=== PATIENT | female | born 1990 | race Caucasian/White ===

== ENCOUNTER → 2016-07-18 | Outpatient (CLI) | payer BC | END | disposition home or self-care (01) | LOC: C.PAPS 16:44 | PROVIDERS: ATTEND Obstetrics & Gynecology | DX: Z01.419 Encounter for gynecological examination (general) (routine) without abnormal findings (principal) ==

== ENCOUNTER → 2016-07-18 | Outpatient (CLI) | payer BC | END | disposition home or self-care (01) | LOC: C.LABSPEC 12:46 | PROVIDERS: ATTEND Obstetrics & Gynecology | DX: Z01.411 Encounter for gynecological examination (general) (routine) with abnormal findings (principal); N89.8 Other specified noninflammatory disorders of vagina ==

== ENCOUNTER → 2016-09-12 | Outpatient (CLI) | payer BC ==
--- NOTE | 2016-09-12 16:11 | DIAGNOSTIC IMAGING REPORT ---
RIGHT FOOT 3 VIEWS CLINICAL HISTORY: Right lateral foot pain. FINDINGS: 3 views of the right foot are obtained. No prior studies are available for comparison at the time of dictation. The skeletal structures are well mineralized. No fracture is seen. The joint spaces of the foot are well-maintained. The overlying soft tissues are within normal limits. IMPRESSION: Unremarkable radiographic assessment of the right foot. Electronically signed by: Omar Navarro M.D. 09/12/2016 4:10 PM Dictated Date/Time: 09/12/2016 4:07 PM
== END | disposition home or self-care (01) ==
LOC: C.RADBC 15:42
PROVIDERS: ATTEND Family Medicine
DX: M25.571 Pain in right ankle and joints of right foot (principal)

== ENCOUNTER → 2017-04-30 | Outpatient (CLI) | payer BC ==
--- NOTE | 2017-04-30 09:41 | DIAGNOSTIC IMAGING REPORT ---
R WRIST MIN 3 VIEWS ROUTINE CLINICAL HISTORY: PAIN IN RIGHT WRIST pain COMPARISON: None. DISCUSSION: The bones and joint spaces appear intact. There is no evidence of fracture, dislocation or bony disease. There is no evidence for soft tissue swelling. IMPRESSION: Negative study. The above report was generated using voice recognition software. It may contain grammatical, syntax or spelling errors. Electronically signed by: George Agee M.D. 04/30/2017 9:40 AM Dictated Date/Time: 04/30/2017 9:38 AM
== END | disposition home or self-care (01) ==
LOC: C.RADBC 09:21
PROVIDERS: ATTEND Family Medicine
DX: M25.531 Pain in right wrist (principal)

== ENCOUNTER → 2017-08-27 | Outpatient (CLI) | payer BC | END | disposition home or self-care (01) | LOC: C.LABSPEC 16:11 | PROVIDERS: ATTEND Obstetrics & Gynecology | DX: Z34.81 Encounter for supervision of other normal pregnancy, first trimester (principal) ==

== ENCOUNTER → 2017-09-25 | Outpatient (CLI) | payer BC ==
[2017-09-25 14:38] LABS: BASO % 0.1 %; BASO ABS # 0.01 K/uL (0-0.2); EOS % 2.1 %; EOS ABS # 0.18 K/uL (0-0.5); HEMATOCRIT 39.5 % (37-47); HEMOGLOBIN 13.6 g/dL (12.0-16.0); IG# 0.03 K/uL (0.00-0.02); LYMPH % 17.3 %; LYMPH ABS # 1.51 K/uL (1.2-3.4); MEAN CELL VOLUME 86.8 fL (80-100); MEAN CORPUSCULAR HEMOGLOBIN 29.9 pg (25-34); MEAN CORPUSCULAR HGB CONC 34.4 g/dl (32-36); MEAN PLATELET VOLUME 9.6 fL (7.4-10.4); MONO % 6.7 %; MONO ABS # 0.58 K/uL (0.11-0.59); NEUT % 73.5 %; NEUT ABS # 6.41 K/uL (1.4-6.5); PLATELET COUNT 266 K/uL (130-400); RED CELL DISTRIBUTION WIDTH CV 12.5 % (11.5-14.5); RED CELL DISTRIBUTION WIDTH SD 39.7 fL (36.4-46.3); WHITE BLOOD COUNT 8.72 K/uL (4.8-10.8)
== END | disposition home or self-care (01) ==
LOC: C.LAB1850 13:22
PROVIDERS: ATTEND Obstetrics & Gynecology
DX: Z34.81 Encounter for supervision of other normal pregnancy, first trimester (principal)

== ENCOUNTER → 2017-10-07 | Outpatient (CLI) | payer BC | END | disposition home or self-care (01) | LOC: C.LAB1850 11:22 | PROVIDERS: ATTEND Obstetrics & Gynecology | DX: Z34.82 Encounter for supervision of other normal pregnancy, second trimester (principal) ==

== ENCOUNTER 2019-07-22 20:50 | Observation (INO) ==
--- OUTSIDE RECORDS SUMMARY | 2019-07-22 20:53 | External Medical Summary | Continuity of Care Document ---
:1990 Author Name Malathi Deshpande, Provider Address Unavailable Unavailable , Care Team Providers Name Role Phone Unavailable Unavailable Unavailable ASHLYN DAVISON Unavailable Unavailable Unavailable Unavailable Unavailable Problems Supervision of normal intrauterine pregn catalino in multigravida in third trimester (V22.1) (Z34.83) Cervical polyp (622.7) (N84.1) Allergies and Adverse Reactions Penicillins (Allergy) Status: Denied Sulfa Drugs (Allergy) Medications Pre- Charlee ROMERO Refills: 0 Procedures History of Oral Surgery Tooth Extraction Status: Completed Immunizations Influenza On: 06-Mar-2017 Tdap (Adacel) On: 08-Jan-2018 8:43 Lot #: [id number], [employer] PA[employer]UR Family History Father Family history of hypertension (V17.49) (Z82.49) Status: Act layo FHx: hypercholesterolemia (V18.19) (Z83.42) Status: Active Family history of cardiac disorder (V17.49) (Z82.49) Status: Active Grandmother Family history of cardiac disorder (V17.49) (Z82.49) Status: Active Grandmother Family history of cardiac disorder (V17.49) (Z82.49) Status: Active Grandfather Family history of cardiac disorder (V17.49) (Z82.49) Status: Active Grandfather Family history of cardiac disorder (V17.49) (Z82.49) Status: Active Mother Family history of endometriosis (V19.8) (Z84.2) Status: Acti ve Family history of ovarian cyst (V18.7) (Z84.2) Status: Activ e Social History - Smoking Status Never smoker Plan of Treatment Planned Observations Planned Goals not documented Results No Known Results Results not documented Encounters Appointment; Nahomi Jj M.D. 14-May-2018 10:00 Encounter Diagnosis: Problem not documented Appointment; Adelita Moore DO 26-Mar-2018 10:20 Encounter Diagnosis: Problem not documented Appointment; Yajaira Gtz M.D. 19-Mar-2018 13:00 Encounter Diagnosis: Problem not documented Appointment; Beatriz Gautam M.D. 12-Mar-2018 16:10 Encounter Diagnosis: Problem not documented Appointment; Berhane Roger M.D. 04-Mar-2018 16:00 Encounter Diagnosis: Problem not documented Appointment; Yajaira Gtz M.D. 19-Feb-2018 11:40 Encounter Diagnosis: Problem not documented Appointment; Yajaira Gtz M.D. 06-Feb-2018 9:10 Encounter Diagnosis: Problem not documented Appointment; Dez Levy M.D. 22-Jan-2018 8:50 Encounter Diagnosis: Problem not documented Appointment; Yaajira Gtz M.D. 08-Jan-2018 8:20 Encounter Diagnosis: Problem not documented Appointment; Adelita Moore DO 09-Dec-2017 8:30 Encounter Diagnosis: Problem not documented Appointment; Beatriz Gautam M.D. 11-Nov-2017 11:10 Encounter Diagnosis: Problem not documented Appointment; OBGYN SC2, Ultrasound 11-Nov-2017 10:05 Encounter Diagnosis: Problem not documented Appointment; Dez Levy M.D. 07-Oct-2017 10:40 Encounter Diagnosis: Problem not documented Appointment; OBGYN SC2, Ultrasound 30-Sep-2017 10:15 Encounter Diagnosis: Problem not documented Appointment; Nahomi Jj M.D. 25-Sep-2017 13:00 Encounter Diagnosis: Problem not documented Appointment; OB SC1, Procedure Rm 25-Sep-2017 13:00 Encounter Diagnosis: Problem not documented Appointment; OB SC1, Nursing Station 27-Aug-2017 13:00 Encounter Diagnosis: Problem not documented
--- OUTSIDE RECORDS SUMMARY | 2019-07-22 20:53 | External Medical Summary | Continuity of Care Document ---
:1990 Author Name Malathi Deshpande, Provider Address Unavailable Unavailable , Care Team Providers Name Role Phone Unavailable Unavailable Unavailable ASHLYN DAVISON Unavailable Unavailable Unavailable Unavailable Unavailable Problems Cervical polyp (622.7) (N84.1) Supervision of normal intrauterine pregn catalino in multigravida in third trimester (V22.1) (Z34.83) Allergies and Adverse Reactions Penicillins (Allergy) Status: Denied Sulfa Drugs (Allergy) Medications Pre- Charlee ROMERO Refills: 0 Procedures History of Oral Surgery Tooth Extraction Status: Completed Immunizations Influenza On: 06-Mar-2017 Tdap (Adacel) On: 08-Jan-2018 8:43 Lot #: [id number], [employer]FI PA[employer]UR Family History Father Family history [...] 8:50 Encounter Diagnosis: Problem not documented Appointment; Yajaira Gtz M.D. 08-Jan-2018 8:20 Encounter Diagnosis: Problem [...]
[2019-07-22] MEDS ORDERED: SODIUM CHLORIDE 0.9% 1000ML 1,000 ML IV ONE (21:20)
[2019-07-22] MEDS ORDERED: MoRPHine SULFATE 4 MG/ML 1 ML CARP\\VIAL IV STA (21:20)
[2019-07-22] MEDS ORDERED: ONDANSETRON INJ 2 MG/ML 2 ML VIAL IV STA (21:20)
[2019-07-22 22:08] LABS: Alanine Aminotransferase 23 U/L (12-78); Albumin Level 4.2 gm/dl (3.4-5.0); Aspartate Aminotransferase 18 U/L (15-37); BUN Creatinine Ratio 10.2 (10-20); Blood Urea Nitrogen 11 mg/dl (7-18); Calcium 9.3 mg/dl (8.5-10.1); Carbon Dioxide 27 mmol/L (21-32); Chloride 105 mmol/L (98-107); Est GFR (African American) 82.9; Est GFR (Non-African American) 71.5; Glucose 134 mg/dl (70-99); Lipase 147 U/L (73-393); Potassium 3.5 mmol/L (3.5-5.1); Sodium 138 mmol/L (136-145)
[2019-07-22 22:11] LABS: Albumin Globulin Ratio 1.1 (0.9-2); Alkaline Phosphatase 69 U/L (45-117); Bilirubin,Total 0.7 mg/dl (0.2-1); Globulin 3.8 gm/dl (2.5-4.0)
[2019-07-22 22:25] LABS: Pregnancy Test, Serum Negative (Negative)
[2019-07-22 22:28] LABS: Hematocrit (blood only) 45.3 % (37-47); Hemoglobin 15.6 g/dL (12.0-16.0); Mean Corpuscular Hemoglobin 29.8 pg (25-34); Mean Corpuscular Hgb Conc 34.4 g/dL (32-36); Mean Corpuscular Volume 86.6 fL (80-100); Mean Platelet Volume 9.7 fL (7.4-10.4); Platelet Count 316 K/uL (130-400); RDW Coefficient of Variation 12.4 % (11.5-14.5); RDW Standard Deviation 39.7 fL (36.4-46.3); Red Blood Count 5.23 M/uL (4.2-5.4); White Blood Count 22.08 K/uL (4.8-10.8)
[2019-07-22 22:30] LABS: ALC (manual) 0.77 K/uL (1.2-3.4); ANC (manual) 19.56 K/uL (1.4-6.5); Basophils % (manual) 0.9 %; Lymphocytes # (manual) 0.77 K/uL (1.2-3.4); Lymphocytes % (manual) 3.5 %; Monocytes # (manual) 1.55 K/uL (0.11-0.59); Neutrophils # (manual) 19.56 K/uL (1.4-6.5); Neutrophils % (manual) 88.6 %; Platelet Estimate Normal (Normal)
[2019-07-22] MEDS ORDERED: IOVERSOL 100ml IV PRN (22:30)
--- NOTE | 2019-07-22 22:51 | CT Scan Report ---
ABDOMEN AND PELVIS CT WITH IV CONTRAST CT DOSE: 283.12 mGy.cm HISTORY: Acute right lower quadrant abdominal pain RLQ pain TECHNIQUE: Multiaxial CT images of the abdomen and pelvis were performed following the IV administrat ion of 93 cc of Optiray 320, A dose lowering technique was utilized adhering to the principles of [place]. COMPARISON STUDY: None. FINDINGS: Lung bases are clear. No pneumatosis or pneumoperitoneum. The imaged inferior cardiac chambers are un remarkable. Splenomegaly, 13.67 m in length. Mild gallbladder distention. Pancreas and adrenal glands are unremarkable. There are a few hypodensities within the hepatic dome measuring up to 10 mm sugges tive of probable cysts. Liver is otherwise unremarkable. Patency of the hepatic and portal veins. Kid neys are unremarkable without hydronephrosis. Probable cyst of the inferior pole left kidney, 8 mm. M ild urinary bladder wall thickening. IUD of the central pelvis. Mild free pelvic fluid. No adnexal ma ss lesions. Aorta and IVC are within normal limits. No adenopathy. No bowel obstruction. Moderate fecal retention of the right hemicolon. Mildly distended fluid-filled terminal ileum measuring 3.0 cm is suggestive of sentinel loop ileus. The adjacent appendix is subopt imally visualized without the use of enteric contrast however is dilated and fluid-filled measuring u p to 9 mm with mild wall thickening and periappendiceal inflammatory stranding. No drainable fluid co llection. Soft tissues are unremarkable. Bones appear intact. IMPRESSION: 1. Limited exam without the use of enteric contrast. 2. Appendix is fluid-filled and dilated at 9 mm. Mild periappendiceal inflammatory stranding is also noted with findings suggestive of acute appendicitis in the appropriate clinical setting. No evidence of perforation or drainable fluid collection. 3. Fluid-filled mildly dilated distal ileum suggests sentinel loop ileus. No bowel obstruction. 4. Mild free pelvic fluid. 5. Additional findings as above. ACT 112: Negative or not required by law. The above report was generated using voice recognition software. It may contain grammatical, syntax o r spelling errors. Electronically signed by: Tanner Lassiter M.D. 07/22/2019 10:50 PM
[2019-07-22] MEDS ORDERED: cefOXitin 2,000 MG/60 ML BAG IV STA (22:53)
[2019-07-22] MEDS ORDERED: SODIUM CHLORIDE 0.9% 500 ML IV SCH (23:00)
--- NOTE | 2019-07-23 00:07 | Emergency Department Note ---
Entered by Cornelia Zabala acting as a scribe for Karri Elise MD History of Present Illness General Chief complaint: Vomiting Stated complaint: VOMITING,SEVERE PAIN Time Seen by Provider: 07/22/19 21:09 Source: patient History of Present Illness Onset (ago): hour(s) (5) Location: abdomen Pain Consistency: + constant Maximum Pain Intensity: 10 Quality: + sharp Associated symptoms: + denies other symptoms (blood in vomit, blood in urine, recent trauma) and + nausea/vomiting The patient is a 29 year old female who presents to the Emergency Room with complaints of constant sharp abdominal pain beginning 5 hours ago. The patient reports vomiting 3 - 4 times. She denies any blood in her vomit. The patient reports taking 2 ibuprofen for the pain but notes they did not help. The patient denies blood in her urine, recent trauma, and alcohol and tobacco use. She states her last bowel movement was 5 hours ago and was normal. She states she had a cold and the stomach bug about 2 weeks ago. The patient reports a history of ovarian cysts, but denies a history of kidney stones. She states she had an IUD placed 4-5 weeks ago and been having some minor bleeding ever since. Home Medications Home Medications Medication Instructions Recorded Confirmed Type levonorgestrel [Mirena] 0 mcg INTRAUTERINE DIRECTED 07/22/19 07/22/19 History Allergies Allergy/AdvReac Type Severity Reaction Status Date / Time Sulfa (Sulfonamide Allergy Unknown Hives Verified 07/22/19 22:19 Antibiotics) Past Med/Surg History Medical History Endometriosis Heart murmur Ovarian cyst Vaginal delivery 01/16/14 Vaginal hematoma Vaginal hematoma following 2014 delivery Surgical History H/O wisdom tooth extraction Family History Father Heart disease Hypertension Dyslipidemia Grandmother (Maternal) Heart disease Grandmother (Paternal) Heart disease Grandfather (Maternal) Heart disease Grandfather (Paternal) Heart disease Mother Endometriosis Social History Preferred Language: Luxembourgish Quill Fixer Required: No Beliefs That Will Affect Care: None marital status: Current Living Situation: Spouse and Family Feels Safe at Home: Yes Smoking Status: Never smoker Second Hand Exposure: No ; Hx Alcohol Use: No Hx Substance Use: No Review of Systems See HPI for pertinent positives & negatives. and A total of 10 systems reviewed and were otherwise negative Physical Exam Vital Signs Vital Signs - 24 hr 07/22/19 20:52 07/22/19 21:53 07/22/19 23:32 Temperature 37.0 C Temperature Source Oral Pulse Rate 69 Pulse Rate [Apical] 59 L 80 Pulse Rhythm Regular Pulse Rhythm [Apical] Regular Pulse Strength Normal Pulse Strength [Apical] Normal Respiratory Rate 17 18 16 Respiratory Effort / Characteristics Non-Labored Spontaneous Non-Labored Spontaneous Respiratory Depth Normal Normal Respiratory Pattern Regular Blood Pressure 129/88 Blood Pressure [Right Arm] 133/78 124/65 Blood Pressure Mean 101 Blood Pressure Mean [Right Arm] 96 84 Blood Pressure Position Sitting Blood Pressure Position [Right Arm] Sitting Pulse Oximetry 97 98 98 Oxygen Delivery Method Room Air Room Air Room Air Sepsis Recent Fever Within 48 Hours No Sepsis Action Taken by Nursing No Action Required GENERAL: Tearful, in pain, well nourished, non-toxic. EYE EXAM: Normal conjunctiva. PERRL, no anisocoria and EOM's grossly intact w/o pain. OROPHARYNX: Moist mucous membranes. Grossly normal dentition. NECK: Supple, no nuchal rigidity, no adenopathy, non-tender. No signs of meningismus. LUNGS: Clear to auscultation. Normal chest wall mechanics. HEART: NSR, no MRG. ABDOMEN: Abdomen soft, normo-active bowel sounds, no masses, no rebound or guarding. Right lower quadrant TTP. Negative Obturator's and Psoas. BACK: No CVA TTP. SKIN: No rashes and no bruising. UPPER EXTREMITIES: Upper extremities are grossly normal. LOWER EXTREMITIES: No pitting edema. No calf pain. NEURO EXAM: A&O x3, cranial nerves II-XII grossly intact, normal speech, moves all 4 extremities on command w/o issue. Course Course 2124: Past medical records reviewed. The patient was evaluated in room A11B. A complete history and physical exam was performed. 2254: Upon reevaluation, the patient is feeling better. I discussed findings and results with the patient. She verbalized agreement of the treatment plan. 2299: Discussed the patient's case with Dr. Blackwell - General Surgery. The patient will be evaluated for further management. Administered Medications Ioversol (Optiray 320 100ml) 93 ml IV ONCE PRN PRN Reason: Interaction Checking Stop: 07/26/19 22:29 Last Admin: 07/22/19 22:30 Dose: 93 ml Documented by: [id number] Discontinued Medications Sodium Chloride (Nss 1000ml) 1,000 mls @ 999 mls/hr IV .Q1H1M ONE Stop: 07/22/19 22:20 Last Admin: 07/22/19 21:46 Dose: 999 mls/hr Documented by: [id number] Cefoxitin Sodium (Mefoxin) 2,000 mg in 60 mls @ 100 mls/hr IV NOW STA Stop: 07/22/19 23:28 Last Admin: 07/22/19 23:32 Dose: 100 mls/hr Documented by: [id number] Morphine Sulfate (Morphine Sulfate) 4 mg IV NOW STA Stop: 07/22/19 21:21 Last Admin: 07/22/19 21:46 Dose: 4 mg Documented by: [id number] Ondansetron HCl (Zofran) 4 mg IV NOW STA Stop: 07/22/19 21:21 Last Admin: 07/22/19 21:46 Dose: 4 mg Documented by: [id number] Medical Decision Making Differential Diagnosis Differential diagnoses includes but is not limited to gastritis, peptic ulcer disease, GERD, gallbladder disease, pancreatitis, small bowel obstruction, acute coronary syndrome, pericarditis, ischemic bowel, irritable bowel disease, irritable bowel syndrome, appendicitis, diverticulitis, malignancy, hernia, urinary tract infection, torsion, /ectopic , perforation, trauma, infectious. Medical Records Attestation: I reviewed the patient's medical records. Home Medications Current Medication List: was personally reviewed by me Laboratory Data Attestation: I reviewed the patient's lab results. Result diagrams: 07/22/19 21:35 07/22/19 21:35 Lab Results 07/22/19 07/22/19 07/22/19 Range/Units 21:35 21:35 21:35 WBC 22.08 H (4.8-10.8) K/uL RBC 5.23 (4.2-5.4) M/uL Hgb 15.6 (12.0-16.0) g/dL Hct 45.3 (37-47) % MCV 86.6 (80-100) fL MCH 29.8 (25-34) pg MCHC 34.4 (32-36) g/dL RDW Std Deviation 39.7 (36.4-46.3) fL RDW Coeff of Gladis 12.4 (11.5-14.5) % Plt Count 316 (130-400) K/uL MPV 9.7 (7.4-10.4) fL Neutrophils % (Manual) 88.6 % Lymphocytes % (Manual) 3.5 % Monocytes % (Manual) 7.0 % Basophils % (Manual) 0.9 % Neutrophils # (Manual) 19.56 H (1.4-6.5) K/uL Total Absolute Neuts 19.56 H (1.4-6.5) K/uL Lymphocytes # (Manual) 0.77 L (1.2-3.4) K/uL Total Abs Lymphocytes 0.77 L (1.2-3.4) K/uL Monocytes # (Manual) 1.55 H (0.11-0.59) K/uL Basophils # (Manual) 0.20 (0-0.2) K/uL Platelet Estimate Normal (Normal) Sodium 138 (136-145) mmol/L Potassium 3.5 (3.5-5.1) mmol/L Chloride 105 (98-107) mmol/L Carbon Dioxide 27 (21-32) mmol/L Anion Gap 6.0 (3-11) BUN 11 (7-18) mg/dl Creatinine 1.04 (0.6-1.2) mg/dl Est Cr Clr Drug Dosing Not Reportable Est GFR ( Amer) 82.9 Est GFR (Non-Af Amer) 71.5 BUN/Creatinine Ratio 10.2 (10-20) Glucose 134 H (70-99) mg/dl Calcium 9.3 (8.5-10.1) mg/dl Total Bilirubin 0.7 (0.2-1) mg/dl AST 18 (15-37) U/L ALT 23 (12-78) U/L Alkaline Phosphatase 69 (45-117) U/L Total Protein 8.0 (6.4-8.2) gm/dl Albumin 4.2 (3.4-5.0) gm/dl Globulin 3.8 (2.5-4.0) gm/dl Albumin/Globulin Ratio 1.1 (0.9-2) Lipase 147 (73-393) U/L HCG, Qual Negative (Negative) Imaging Data Radiologist's Impression: Radiology results as stated below per my review and the radiologist's interpretation: ABDOMEN AND PELVIS CT WITH IV CONTRAST CT DOSE: 283.12 mGy.cm HISTORY: Acute right lower quadrant abdominal pain RLQ pain TECHNIQUE: Multiaxial CT images of the abdomen and pelvis were performed following the IV administration of 93 cc of Optiray 320, A dose lowering technique was utilized adhering to the principles of ALARA. COMPARISON STUDY: None. FINDINGS: Lung bases are clear. No pneumatosis or pneumoperitoneum. The imaged inferior cardiac chambers are unremarkable. Splenomegaly, 13.67 m in length. Mild gallbladder distention. Pancreas and adrenal glands are unremarkable. There are a few hypodensities within the hepatic dome measuring up to 10 mm suggestive of probable cysts. Liver is otherwise unremarkable. Patency of the hepatic and portal veins. Kidneys are unremarkable without hydronephrosis. Probable cyst of the inferior pole left kidney, 8 mm. Mild urinary bladder wall thickening. IUD of the central pelvis. Mild free pelvic fluid. No adnexal mass lesions. Aorta and IVC are within normal limits. No adenopathy. No bowel obstruction. Moderate fecal retention of the right hemicolon. Mildly distended fluid-filled terminal ileum measuring 3.0 cm is suggestive of sentinel loop ileus. The adjacent appendix is suboptimally visualized without the use of enteric contrast however is dilated and fluid-filled measuring up to 9 mm with mild wall thickening and periappendiceal inflammatory stranding. No drainable fluid collection. Soft tissues are unremarkable. Bones appear intact. IMPRESSION: 1. Limited exam without the use of enteric contrast. 2. Appendix is fluid-filled and dilated at 9 mm. Mild periappendiceal inflammatory stranding is also noted with findings suggestive of acute appendicitis in the appropriate clinical setting. No evidence of perforation or drainable fluid collection. 3. Fluid-filled mildly dilated distal ileum suggests sentinel loop ileus. No bowel obstruction. 4. Mild free pelvic fluid. 5. Additional findings as above. ACT 112: Negative or not required by law. The above report was generated using voice recognition software. It may contain grammatical, syntax or spelling errors. Electronically signed by: Tanner Lassiter M.D. 07/22/2019 10:50 PM Blood Pressure Blood Pressure Findings: Elevated blood pressure Blood Pressure Disposition: further management by hospitalist MDM Narrative The patient is a 29 year old female who presents to the Emergency Room with complaints of constant sharp abdominal pain beginning 5 hours ago. Patient was seen and evaluated at the bedside. The patient did present with right lower quadrant pain. The patient does have right lower quadrant pain on exam. Is tearful. Patient did have blood work completed along with urinalysis and CT of the abdomen pelvis. Patient was given antiemetics and pain me dications. Patient did have a white count of 22. Patient does have a CT concerning for fluid-filled appendix. There is an ileus but no bowel obstruction. The patient is much improved upon reassessment. I did speak the on-call general surgeon who agreed to admit the patient. Patient was ordered cefoxitin. Patient was made n.p.o. started on maintenance fluids and the patient was admitted to general surgery. Pending OR in the morning for general surgery. Impression & Plan Acute appendicitis, Abdominal pain, Ileus Discharge Plan Visit Data Chief Complaint: Vomiting Stated Complaint: VOMITING,SEVERE PAIN ED Provider: Karri Elise Discharge Problem: Acute appendicitis, Abdominal pain, Ileus Patient Disposition: Being Evaluated by Hospitalist Discharge Instructions Interventions: ED Discharge Assessment Last Done: 07/22/19 23:53 Discharge Problem: Acute appendicitis Qualifiers: Acute appendicitis type: unspecified acute appendicitis type Qualified Code(s): K35.80 - Unspecified acute appendicitis Abdominal pain Qualifiers: Abdominal location: right lower quadrant Qualified Code(s): R10.31 - Right lower quadrant pain The scribe's documentation has been prepared under my direction and personally reviewed by me in its entirety. I confirm that the note above accurately reflects all work, treatment, procedures, and medical decision making performed by me.
[2019-07-23] MEDS ORDERED: ONDANSETRON INJ 2 MG/ML 2 ML VIAL IV PRN ×2 (00:17→08:12)
[2019-07-23] MEDS: SODIUM CHLORIDE 0.9% 1000ML 1,000 ML IV SCH ×2 (00:31→07:07)
[2019-07-23] MEDS: MoRPHine SULFATE 2 MG/ML CARP IV PRN ×2 (00:56→05:55)
[2019-07-23] MEDS ORDERED: BUPIVACAINE/EPINEPHRINE 0.5% MPF 1:200,000 10 ML VIAL ONE (07:05)
[2019-07-23] MEDS ORDERED: MIDAZOLAM HCL 1 MG/ML 2ML VIAL ONE (07:23)
[2019-07-23] MEDS ORDERED: fentaNYL citrate 100 MCG/2 ML VIAL ONE ×2 (07:23→08:41)
--- NOTE | 2019-07-23 07:27 | History & Physical Report ---
Date of Service July 23, 2019 Assessment & Plan (1) Acute appendicitis: This is a 29yF who is 15mos post , without any other significant medical history who presents to the [facility] with abdominal pain and vomiting. Workup in the ED showed a WBC of [address] scan concerning for acute ap pendicitis. Patient is primarily tender in the right lower quadrant. She has been NPO, last ate at 2pm yesterday. We will plan to proceed with laparoscopic appendectomy today and patient in agreement. Keep NPO with IVF and IV abx. Dr. Blackwell will be by to obtain surgical consent. as above. pt also has an umbilical hernia that bothers her. will repair at the end of the case. discussed options/risks ( bleeding/infection/dvt/pe/mi/cva/injury to another organ such as bowel/bladder /ureter etc...). questions answered. pt agreeable. History of Present Illness Primary Care Provider: Adriano Faheem Cruz This is a 29y F who is 15mos post vaginal delivery without any other significant medical history who presents to the [facility] ED on 07/22/19 with complaints of abdominal pain and vomiting. Patient states her abdominal pain started around 4pm yesterday. It started out as a dull ache then progressed to become more severe. She ultimately ended up vomiting 3-4 times and decided to come in to the ED for evaluation. She reports her pain is primarily in the right lower abdominal region. In the ED patient is afebrile, WBC elevated at 22, and a CT a/p performed revealed findings concerning for acute appendicitis. Patient denies fevers/chills, diarrhea/constipation, and has not had previous abdominal surgery. Surgery was consulted to evaluate patient. Allergies Allergy/AdvReac Type Severity Reaction Status Date / Time Sulfa (Sulfonamide Allergy Unknown Hives Verified 07/22/19 22:19 Antibiotics) Home Medications Home Medications Medication Instructions Recorded Confirmed Type levonorgestrel [Mirena] 0 mcg INTRAUTERINE DIRECTED 07/22/19 07/22/19 History Past Med/Surg History Medical History Endometriosis Heart murmur Ovarian cyst Vaginal delivery 01/16/14 Vaginal hematoma Vaginal hematoma following 2014 delivery Surgical History H/O wisdom tooth extraction Family History Father Heart disease Hypertension Dyslipidemia Grandmother (Maternal) Heart disease Grandmother (Paternal) Heart disease Grandfather (Maternal) Heart disease Grandfather (Paternal) Heart disease Mother Endometriosis Social History Preferred Language: Thai Communication Ability: Effective Reconditioner Required: No Beliefs That Will Affect Care: None marital status: Current Living Situation: Family Feels Safe at Home: Yes Safety Concerns: Feels Safe At This Time Smoking Status: Never smoker Second Hand Exposure: No ; Hx Alcohol Use: Yes Hx Substance Use: No Review of Systems Constitutional: no fever and no chills feels dehydrated Cardiovascular: no chest pain Gastrointestinal: + abdominal pain (right lower abdomen), + nausea and + vomiting; no bloating and no change in bowel habits Physical Exam Physical Exam: awake/alert Constitutional: well developed and well nourished; no acute distress Respiratory: normal respiratory effort Gastrointestinal (Abdomen): Inspection/Auscultation: abdomen not distended and no abdominal surgical scar Percussion/Palpation: + abdomen tender (primarily in RLQ), + guarding and abdomen soft Results & Data Vital Signs (Past 12 Hours) Vital Signs Temp Pulse Pulse Pulse Resp BP BP 07/23/19 00:00 36.5 C 66 16 110/72 07/22/19 23:32 80 16 07/22/19 21:53 59 L 18 07/22/19 20:52 37.0 C 69 17 129/88 BP Pulse Ox 07/23/19 00:00 97 07/22/19 23:32 124/65 98 07/22/19 21:53 133/78 98 07/22/19 20:52 [phone] Scan Report Patient: BARTOLO TRAORE AAdmit Date: 07/22/19 MR#: [id number]: [address] [facility] Acct ID:[id number]: Date: 1990[facility] Zip: [place] [id number] Age: 29Location: ED Sex: F Room/Bed: Att Phy:Diagnosis: VOMITING,SEVERE PAIN Alla Phy: Nancy Adriano MayenDisha, DOService Date: 07/22/19 [facility] Phy:Interpreting Phy: Berhane Lassiter Admit Phy: Ordering Phy: Karri Elise M.D. cc: ~ ABDOMEN AND PELVIS CT WITH IV CONTRAST CT DOSE: 283.12 mGy.cm HISTORY: Acute right lower quadrant abdominal pain RLQ pain TECHNIQUE: Multiaxial CT images of the abdomen and pelvis were performed following the IV administration of 93 cc of Optiray 320, A dose lowering technique was utilized adhering to the principles of ALARA. COMPARISON STUDY: None. FINDINGS: Lung bases are clear. No pneumatosis or pneumoperitoneum. The imaged inferior cardiac chambers are unremarkable. Splenomegaly, 13.67 m in length. Mild gallbladder distention. Pancreas and adrenal glands are unremarkable. There are a few hypodensities within the hepatic dome measuring up to 10 mm suggestive of probable cysts. Liver is otherwise unremarkable. Patency of the hepatic and portal veins. Kidneys are unremarkable without hydronephrosis. Probable cyst of the inferior pole left kidney, 8 mm. Mild urinary bladder wall thickening. IUD of the central pelvis. Mild free pelvic fluid. No adnexal mass lesions. Aorta and IVC are within normal limits. No adenopathy. No bowel obstruction. Moderate fecal retention of the right hemicolon. Mildly distended fluid-filled terminal ileum measuring 3.0 cm is suggestive of sentinel loop ileus. The adjacent appendix is suboptimally visualized without the use of enteric contrast however is dilated and fluid-filled measuring up to 9 mm with mild wall thickening and periappendiceal inflammatory stranding. No drainable fluid collection. Soft tissues are unremarkable. Bones appear intact. IMPRESSION: 1. Limited exam without the use of enteric contrast. 2. Appendix is fluid-filled and dilated at 9 mm. Mild periappendiceal inflammatory stranding is also noted with findings suggestive of acute appendicitis in the appropriate clinical setting. No evidence of perforation or drainable fluid collection. 3. Fluid-filled mildly dilated distal ileum suggests sentinel loop ileus. No bowel obstruction. 4. Mild free pelvic fluid. 5. Additional findings as above. ACT 112: Negative or not required by law. The above report was generated using voice recognition software. It may contain grammatical, syntax or spelling errors. Electronically signed by: Tanner Lassiter M.D. 07/22/2019 10:50 PM PG Care Time/CCT Total # of Minutes Spent Total Time Spent with Patient: Total time spent is greater than 50% in coordination of care (as documented) at patient's floor/unit and/or counseling patient: (1) Acute appendicitis Acute appendicitis type: unspecified acute appendicitis type Qualified Code(s): K35.80 - Unspecified acute appendicitis
[2019-07-23] MEDS ORDERED: ONDANSETRON INJ 2 MG/ML 2 ML VIAL ONE (07:31)
[2019-07-23] MEDS ORDERED: DEXAMETHASONE SOD INJ 4 MG/ML VIAL ONE (07:31)
[2019-07-23] MEDS ORDERED: LIDOCAINE HCL 2% 2 ML VIAL/AMP(20MG/ML) INFIL ONE (07:31)
[2019-07-23] MEDS ORDERED: ROCURONIUM BROMID 50MG/5ML SYR ONE ×5 (07:31)
[2019-07-23] MEDS ORDERED: PROPOFOL IV EMULSION 10 MG/ML 20 ML VIAL IV ONE (07:31)
[2019-07-23] MEDS ORDERED: ACETAMINOPHEN 1000 MG/100 ML IV IV ONE (07:33)
--- NOTE | 2019-07-23 07:57 | Anesthesiology Consultation ---
Date of Service July 23, 2019 Assessment & Plan (1) Encounter for pre-operative examination: Chart Review Chart Review: Acceptable Risk for Surgery History Surgery Operation Date: 07/23/19 07:05 Proposed Procedures p Laparoscopic Appendectomy - Doron Blackwell, Height/Weight Height: 5 ft 8 in Weight: 65.8 kg Allergies Allergy/AdvReac Type Severity Reaction Status Date / Time Sulfa (Sulfonamide Allergy Unknown Hives Verified 07/22/19 22:19 Antibiotics) Medications Home Medications Medication Instructions Recorded Confirmed Last Taken levonorgestrel [Mirena] 0 mcg INTRAUTERINE DIRECTED 07/22/19 07/22/19 Unknown Active Medications Generic Name Dose Route Start Last Admin Trade Name Freq PRN Reason Stop Dose Admin Sodium Chloride 1,000 mls @ 150 mls/hr 07/22/19 23:30 07/23/19 07:07 Nss 1000ml IV 07/23/19 23:29 150 mls/hr .Q6H40M OSCAR Administration Morphine Sulfate 2 mg 07/23/19 00:17 07/23/19 05:55 Morphine Sulfate IV 08/06/19 00:16 2 mg Q1H PRN Administration Pain NPO Date Last Intake of Fluids: 07/22/19 Time Last Intake of Fluids: 20:00 Date Last Intake of Solids: 07/22/19 Time Last Intake of Solids: 14:00 Past Medical History Medical History Endometriosis Heart murmur Ovarian cyst Vaginal delivery 01/16/14 Vaginal hematoma Vaginal hematoma following 2014 delivery Exercise / Class Metabolic Activity II 4-5 Yardwork/Stairs/Walk up hill Past Family History Family History Father Heart disease Hypertension Dyslipidemia Grandmother (Maternal) Heart disease Grandmother (Paternal) Heart disease Grandfather (Maternal) Heart disease Grandfather (Paternal) Heart disease Mother Endometriosis Past Surgical History Surgical History H/O wisdom tooth extraction Past Anesthesia History No Hx of Anesthesia Complications History of PONV No Hx of PONV and No Hx of Motion Sickness Social History Smoking Status: Never smoker Hx Alcohol Use: Yes alcohol intake frequency: a few times a week Hx Substance Use: No substance use type: does not use Physical Exam Vital Signs Last Vital Signs Temp 37.2 C 07/23/19 07:30 Pulse 74 07/23/19 07:30 Resp 20 07/23/19 07:30 BP 111/68 07/23/19 07:30 Pulse Ox 95 07/23/19 07:30 Testing Laboratory Results 07/22/19 21:35 07/22/19 21:35
[2019-07-23] MEDS ORDERED: cefOXitin 2,000 MG in DEXTROSE 5% 50 ML IV STA (08:03)
[2019-07-23] MEDS ORDERED: ATROPINE SULFATE 0.1 MG/ML 10ML SYR IV PRN (08:12)
[2019-07-23] MEDS ORDERED: fentaNYL citrate 100 MCG/2 ML VIAL IV PRN (08:12)
[2019-07-23] MEDS ORDERED: KETOROLAC 30 MG/ML VIAL IV PRN (08:12)
[2019-07-23] MEDS ORDERED: NEOSTIGMINE METHYLSULFATE 5 MG/5 ML SYR ONE (08:55)
[2019-07-23] MEDS ORDERED: GLYCOPYRROLATE 0.2 MG/ML VIAL ONE ×2 (08:55→08:59)
[2019-07-23] MEDS ORDERED: KETOROLAC 30 MG/ML VIAL ONE (08:59)
--- NOTE | 2019-07-23 09:32 | Operative Report ---
PG Post Operative Report Pre & Post Diagnosis Operation Date: 07/23/19 07:05 Pre-Op Diagnosis: Acute Appendicitis and umbilical hernia Post-Op Diagnosis: Acute Appendicitis and umbilical hernia I identified the patient and participated in the time-out.: Yes Procedure Operation Date: 07/23/19 07:05 Actual Procedures p Laparoscopic Appendectomy(Not Applicable) - Doron Blackwell DO s Umbilical Hernia Repair(Not Applicable) - Doron Blackwell DO Surgeon Doron Blackwell DO Post Exchange Manager jesse Gilliland Estimated Blood Loss 5 Findings Consistent with Post-Op Diagnosis Specimens appendix Description of Procedure After informed consent was obtained the patient was taken to the operating room and placed in supine position. After successful intubation a Brito catheter was placed and the left arm was tucked. The Brito catheter was inserted sterilely. I began by making a periumbilical incision through her visible hernia with an 11 blade scalpel and carried this down through the soft tissue using electrocautery. I readily encountered a hernia sac which I grasped with hemostats and opened and excised with Metzenbaum scissors. This revealed a 1.5 cm fascial defect. I used [address] stay sutures to the edges of the hernia defect. A finger sweep was performed. A 12 mm Mckeon trocar was placed through the hernia defect and the abdomen was insufflated to 18 mmHg. A laparoscope was inserted and the abdomen was examined in 360. A suprapubic 5 mm port and a left lower quadrant 12 mm port were placed under direct vision. The patient was air planed to the left as well as placed in a slight Trendelenburg position. We began by looking in the right lower quadrant. We were able to readily identify the appendix and it was grossly inflamed. It had not perforated. There is a small amount of purulent fluid in the right lower quadrant and the pelvis. We immediately irrigated and suctioned this out. I was able to use primarily blunt dissection to pull the appendix away from the right lower quadrant sidewall. I was then able to use a HUYEN brown cartridge stapler to transect both the mesentery of the appendix as well as the appendix itself at its base with the cecum. It was then placed into an Endo Catch bag and removed from the camera port site. We thoroughly irrigated the right lower quadrant as well as the pelvis. There was adequate hemostasis. I ran the small bowel backwards from the terminal ileum for about 6 feet all of which was normal. All the peritoneal surfaces were normal. Small/ large bowel, liver, stomach etc. all appeared grossly normal. We did a final irrigation and then removed all the trochars and desufflated the abdomen. I repaired the hernia by using 0 Ethibond in simple interrupted fashion to primarily close the fascial defect. I then reattach the umbilical stalk to the fascia using 0 Vicryl. The wound was then irrigated and skin was closed using 4-0 Monocryl. I then closed the fascia of the left lower quadrant incision with 0 Vicryl on simple interrupted fashion as well. The remainder of the wounds were all irrigated and closed using 4-0 Monocryl. Marcaine was injected around them for postoperative analgesia and skin glue used as a dressing. The patient was awakened extubated and transferred to recovery in stable condition. My physician's delinquent tax collection assistant was present through the entire case. She assisted with prepping the patient and helped with exposure for port placement, helped run the camera and helped with fascial/wound closure at the end of the procedure as well as dressing placement. I attest to the content of the Intraoperative Record and any orders documented therein. Any exceptions are noted below. I attest to the content of the Intraoperative Record and any orders documented therein. Any exceptions are noted below.
--- NOTE | 2019-07-23 10:06 | Anesthesiology Progress Note ---
Date of Service July 23, 2019 Anesthesia Post Procedure Vital Signs Vital Signs: Temp Pulse Pulse Pulse Resp BP BP 07/23/19 09:50 37.3 C 62 17 122/71 07/23/19 09:40 89 16 117/69 07/23/19 09:30 81 81 19 125/66 07/23/19 09:21 37.1 C 104 H 18 119/65 07/23/19 07:30 37.2 C 74 20 111/68 07/23/19 00:00 36.5 C 66 16 110/72 07/22/19 23:32 80 16 07/22/19 21:53 59 L 18 07/22/19 20:52 37.0 C 69 17 129/88 BP Pulse Ox 07/23/19 09:50 94 07/23/19 09:40 93 07/23/19 09:30 99 07/23/19 09:21 98 07/23/19 07:30 95 07/23/19 00:00 97 07/22/19 23:32 124/65 98 07/22/19 21:53 133/78 98 07/22/19 20:52 97 Pain Intensity Abdomen: Pain Intensity: 5 Transfer of Care Handoff Completed per policy Notes Mental Status: alert / awake / arousable Patient Amnestic to Procedure: Yes Nausea / Vomiting: adequately controlled Pain: adequately controlled Airway Patency, RR, SpO2: stable & adequate BP & HR: stable & adequate Hydration State: stable & adequate Anesthetic Complications: no major complications apparent
[2019-07-23] MEDS ORDERED: LACTATED RINGER'S 1,000 ML IV SCH (10:17)
[2019-07-23] MEDS ORDERED: HYDROCODONE/ACETAMOPHEN 5/325MG TAB PO PRN ×2 (10:17)
--- NOTE | 2019-07-23 13:56 | Discharge Summary ---
Date of Service July 23, 2019 Admission HPI Per Admitting Provider This is a 29y F who is 15mos post vaginal delivery without any other significant medical history who presents to the [facility] ED on 07/22/19 with complaints of abdominal pain and vomiting. Patient states her abdominal pain started around 4pm yesterday. It started out as a dull ache then progressed to become more severe. She ultimately ended up vomiting 3-4 times and decided to come in to the ED for evaluation. She reports her pain is primarily in the right lower abdominal region. In the ED patient is afebrile, WBC elevated at 22, and a CT a/p performed revealed findings concerning for acute appendicitis. Patient denies fevers/chills, diarrhea/constipation, and has not had previous abdominal surgery. Surgery was consulted to evaluate patient. Principal Diagnosis Acute appendicitis Discharge Exam awake/alert Constitutional well developed and well nourished; no acute distress Respiratory normal respiratory effort Gastrointestinal (Abdomen) Inspection/Auscultation: + abdominal surgical incision (c/d/i with dermabond overtop; tegaderm dressing to umbilical incision); abdomen not distended Percussion/Palpation: abdomen soft Discharge Data Allergies Allergy/AdvReac Type Severity Reaction Status Date / Time Sulfa (Sulfonamide Allergy Unknown Hives Verified 07/22/19 22:19 Antibiotics) Procedures Performed Operation Date: 07/23/19 07:05 Actual Procedures p Laparoscopic Appendectomy(Not Applicable) - Doron Blackwell DO s Umbilical Hernia Repair(Not Applicable) - Doron Blackwell DO Ordered Studies 07/22/19 21:32 CT abd pelvis IV con only Stat Hospital Course (1) S/P laparoscopic appendectomy: This is a 29y F who presents to the [facility] ED on 07/22/19 with complaints of right lower abdominal pain and vomiting. Workup in the ED with a CT scan revealed findings concerning for acute appendicitis. WBC22. Surgery evaluated the patient and deemed her a candidate for surgical intervention. Patient agreeable and surgical consent was obtained. On 07/23 the patient went to the OR for a laparoscopic appendectomy with Dr. Blackwell. The patient tolerated the procedure well, see op note for full details. The patient recovered in the PACU and was transferred back to the floor in stable condition. Post operatively patient's pain was well controlled, she tolerated a regular diet, and incisions c/d/i. She was deemed stable for discharge to home on 07/23/19 with plans to follow up in clinic within 1-2 weeks. Discharge instructions given. Total Time Total Time Spent Total Time Spent (In Minutes): 10 Discharge Plan Discharge Items Patient Disposition: Home - Self-Care Reason For Visit: APPENDICITIS Discharge Diagnosis: laparoscopic appendectomy umbilical hernia repair Activity: Per Instructions section Lifting: No more than 10 pounds Bathing Comment: may shower starting 07/24/19; no soaking in tubs Exercise/Sports: Wait until after follow-up appointment Driving/Machine Use: do not resume driving while taking narcotics for pain Non-emergency contact: Surgeon Call non-emergency contact if: you have any medication questions, your symptoms worsen, your pain is not controlled, your pain is worsening, your pain is unusual for you, you have a fever, your temperature is above 101.5, your wound has increased redness, your wound has increased drainage and your wound pain has increased Follow-up/Referrals: Doron Blackwell, [Surgeon] - (Please call to schedule follow up in clinic within 2 weeks.) Adriano Cruz [Primary Care Provider] - Diet: Regular Addtl Attending Provider Instructions: Pending Studies at Discharge: No Stand-Alone Forms: My [employer], Smoking Cessation Medications and DC Order Prescriptions: New hydrocodone-acetaminophen [Walton] 5-325 mg tablet 1 - 2 tab PO .every 4-6 hours PRN (Reason: pain, for initial therapy. Max 8 per day) Qty: 15 RF: 0 Continued Mirena 20 mcg/24 hours (5 yrs) 52 mg Intrauterine Device 0 mcg INTRAUTERINE DIRECTED RF: 0 Discharge Orders: Discharge Order (Routine); Ordered 07/23/19 Ordered By: Vanessa Gilliland Admission Data Admit Date/Time: 07/22/19 23:03 Attending Provider: Doron Blackwell Admit Provider: Doron Blackwell Primary Care Provider: Adriano Cruz
== END 2019-07-23 15:20 | disposition home or self-care (01) ==
LOC: ED 20:50 → 3N 20:50